=== PATIENT | male | born 1995 | race American Indian/Alaskan Native ===

== ENCOUNTER 2020-02-07 17:15 | Emergency (ER) | payer SELFPAY ==
[2020-02-07 17:24] VITALS: BP 138/79
--- NOTE | 2020-02-07 18:17 | Emergency Department Report ---
Chief Complaint: Medical Clearance Stated Complaint: MED REFILL Time Seen by Provider: 02/07/20 18:17 - HPI History of Present Illness: This is a 24-year-old male with a history of ADHD and chronic pain who takes meloxicam and Adderall presents here for medication refill. Patient states he just wanted from [place] and has not been able to see her primary care physician yet. Patient denies any fever, chills, nausea vomiting or any other medical complaints. - ROS Review of Systems: As noted in HPI - Exam Vital Signs: Vital Signs 02/07/20 17:22 Temperature 98.9 F Pulse Rate 65 Respiratory 20 Rate Blood Pressure 138/79 O2 Sat by Pulse 99 Oximetry Physical Exam: GENERAL: Alert and oriented x3, no apparent distress, Normal Gait, atraumatic. SKIN: Warm and dry, No lesions, No ulceration or induration present. MSE screening note: Focused history and physical exam performed. Due to findings the following was ordered: ED Medical Decision Making - Medical Decision Making 24-year-old male who presents for medication refill. Discussed with patient that he needs to see a primary care physician to have prescription filled. Vital signs are normal patient is in no acute distress ED Disposition for MSE Clinical Impression: Medication refill Disposition: Z-07 MED SCREENING EXAM-LEFT Is pt being admited?: No Does the pt Need Aspirin: No Condition: Stable Additional Instructions: Follow-up with Dr. Ronquillo is a primary care doctor for medication refill. Referrals: HEATHER KINCAID MD [Primary Care Provider] - 3-5 Days DANIEL TOTH MD [Staff Physician] - 3-5 Days [facility] [Outside] - 3-5 Days [facility] [Outside] - 3-5 Days Forms: Work/School Release Form(ED) Time of Disposition: 18:16
== END 2020-02-07 18:20 | disposition left against medical advice (07) ==
LOC: ED 17:15
DX: Z76.0 Encounter for issue of repeat prescription (principal); Z53.21 Procedure and treatment not carried out due to patient leaving prior to being seen by health care provider